=== PATIENT | female | born 1990 | race Caucasian/White ===

== ENCOUNTER 2017-02-19 20:53 | Inpatient (IN) | payer OTHER ==
[~2017-02-19] VITALS: Ht 144.8 cm; Wt 83.0 kg
[~2017-02-19 20:53] MED LIST: ADVIL200 MG PO; OXAYDO5 MG PO; OXYCODONE HCL5 MG PO; ZOFRAN4 MG PO
[2017-02-19 21:14] VITALS: BP 121/78
[2017-02-19 21:32] LABS: EOSINOPHIL (%) 0.2 % (0-5); HEMATOCRIT 41.8 % (36.0-46.0); IMMATURE GRANULOCYTE (%) 0.4 % (0.0-0.7); INSTRUMENT ABS NEUTROPHIL CT 8.8 K/uL; LYMPHOCYTE COUNT 1.3 K/uL (1.0-2.8); MCH 28.4 PG (29.0-34.0); MCHC 32.3 G/DL (30.0-36.0); MEAN PLAT.VOLUME 11.1 uM^3 (9.5-12.4); MONOCYTE COUNT 0.9 K/uL (0-0.8); NEUTROPHIL (%) 79.5 % (45-76); NEUTROPHIL COUNT 8.8 K/uL (1.8-6.4); PLATELET COUNT 302 K/uL (156-360); RBC DIS.WIDTH-CV 12.9 % (11.8-14.6); RBC DIS.WIDTH-SD 41.6 % (39-53); RED BLOOD COUNT 4.75 M/uL (3.80-5.20); WHITE BLOOD COUNT 11.1 K/uL (4.1-10.2)
[2017-02-19 21:49] VITALS: BP 118/72
[2017-02-19 22:15] VITALS: BP 153/81
[2017-02-20] VITALS (12 sets, daily range): BP systolic 104–137; BP diastolic 57–78
[2017-02-20] MEDS ORDERED: ENDOCET 5-3251 EACH PO (09:39)
[2017-02-20] MEDS ORDERED: IBUPROFEN800 MG PO (09:39)
[2017-02-21 06:54] LABS: EOSINOPHIL (%) 1.1 % (0-5); EOSINOPHIL COUNT 0.1 K/uL (0-0.3); IMMATURE GRANULOCYTE (%) 0.5 % (0.0-0.7); IMMATURE GRANULOCYTE COUNT 0.1 K/uL; INSTRUMENT ABS NEUTROPHIL CT 5.7 K/uL; LYMPHOCYTE COUNT 2.5 K/uL (1.0-2.8); MCH 28.9 PG (29.0-34.0); MCHC 32.2 G/DL (30.0-36.0); MCV 89.9 FL (83-99); MONOCYTE (%) 16.2 % (3-12); MONOCYTE COUNT 1.6 K/uL (0-0.8); NEUTROPHIL COUNT 5.7 K/uL (1.8-6.4); PLATELET COUNT 255 K/uL (156-360); RBC DIS.WIDTH-SD 42.5 % (39-53); WHITE BLOOD COUNT 9.9 K/uL (4.1-10.2)
[2017-02-21 06:57] LABS: RED BLOOD COUNT 3.56 M/uL (3.80-5.20)
[2017-02-21 07:20] VITALS: BP 106/66
[2017-02-21 14:10] VITALS: BP 103/66
[2017-02-21 19:30] VITALS: BP 108/62
[2017-02-21 23:01] VITALS: BP 114/67
[2017-02-22 03:29] VITALS: BP 105/59
[2017-02-22 07:15] VITALS: BP 105/70
== END 2017-02-22 12:30 | disposition home or self-care (01) | DRG 766 ==
LOC: LDRP-OP 20:53 → 2WEST 20:54 → LDRP-OP 04-02 08:11
PROVIDERS: Obstetrics & Gynecology Gynecology
DX: O34.211 Maternal care for low transverse scar from previous cesarean delivery (principal); Z30.2 Encounter for sterilization; Z3A.38 38 weeks gestation of pregnancy; Z37.0 Single live birth; Z87.891 Personal history of nicotine dependence; E66.9 Obesity, unspecified; Z68.36 Body mass index [BMI] 36.0-36.9, adult; O99.214 Obesity complicating childbirth
CPT/HCPCS: 85025; 88302; 90686; G0378; J0595; J0690; J1100; J1885; J2274; J2405; J2765; J3105; J7120